=== PATIENT | female | born 1940 | race Caucasian/White ===

== ENCOUNTER 2017-07-31 14:32 | Outpatient (CLI) | payer MEDICARE, BC ==
--- NOTE | 2017-07-31 15:13 | ULT ---
VENOUS DOPPLER ULTRASOUND OF THE LEF TLOWER EXTREMITY: HISTORY: Left leg edema and pain. TECHNIQUE: Adams scale ultrasound with color flow and spectral Doppler imaging of the deep venous system of the l eft lower extremity was performed. FINDINGS: There is good flow, compression, and augmentation noted in the left common femoral, femoral, deep fem oral, popliteal, posterior tibial, and greater saphenous veins. IMPRESSION: No evidence of deep vein thrombosis in the left lower extremity. POS: [facility]
== END 2017-07-31 14:33 | disposition home or self-care (01) ==
LOC: RAD 14:32
PROVIDERS: ATTEND Student in an Organized Health Care Education/Training Program
DX: R22.42 Localized swelling, mass and lump, left lower limb (principal); Z86.711 Personal history of pulmonary embolism

== ENCOUNTER 2017-08-09 19:53 | Emergency (ER) | payer MEDICARE, BC ==
--- NOTE | 2017-08-09 22:35 | ULT ---
ULTRASOUND WITH DOPPLER DUPLEX VENOUS LEFT LOWER EXTREMITY CPT: 56059 ICD-10-PCS: [id number] HISTORY: Pain, edema, erythema. TECHNIQUE: Color flow Doppler, spectral waveform analysis of pulsed Doppler, and dueñsa-scale imaging with megan rodo and augmentation, were used to evaluate the left common femoral, femoral, popliteal, posterior t ibial, and superficial femoral, veins; and the proximal portions of the profunda femoral and greater saphenous, veins. FINDINGS: Appropriate compressibility and flow within the deep venous system of the left lower extremity. Soft tissue edema is present. IMPRESSION: No evidence of DVT, left lower extremity. POS: [facility]
== END 2017-08-09 22:19 | disposition home or self-care (01) ==
LOC: ERS 19:53
DX: L03.116 Cellulitis of left lower limb (principal); E78.5 Hyperlipidemia, unspecified; I10 Essential (primary) hypertension; Z85.3 Personal history of malignant neoplasm of breast; Z79.82 Long term (current) use of aspirin; Z79.899 Other long term (current) drug therapy

== ENCOUNTER 2017-10-30 10:05 | Outpatient (CLI) | payer MEDICARE, BC | END 2017-10-30 10:06 | disposition home or self-care (01) | LOC: BICMAMMO 10:05 | PROVIDERS: ATTEND Student in an Organized Health Care Education/Training Program | DX: Z12.31 Encounter for screening mammogram for malignant neoplasm of breast (principal); Z13.820 Encounter for screening for osteoporosis; M85.89 Other specified disorders of bone density and structure, multiple sites; Z85.3 Personal history of malignant neoplasm of breast | CPT/HCPCS: 77063; 77067; 77080 ==

== ENCOUNTER 2018-05-13 08:34 | Emergency (ER) | payer MEDICARE, BC ==
[2018-05-13 09:17] LABS: Bilirubin Negative (Negative); Blood, Urine Moderate (Negative); Clarity CLOUDY (Clear); Glucose, Urine (Dipstick) Negative (Negative); Leukocyte Large (Negative); Nitrite Positive (Negative); Protein, Urine (Dipstick) Trace mg/dL (Neg-Trace); Specific Gravity, Urine 1.011 (1.002-1.036); Urobilinogen 0.2 mg/dL (0.2-1.0); pH, Urine 7.5 (5.0-9.0)
[2018-05-13 09:19] LABS: Bacteria/HPF 1+ HPF (None Seen); Hyaline Casts/LPF 7-10 HYALINE CAST LPF (0-3 Hyaline); Pathc Cast-AUWi Flag 2.32 (0-2.49); Squamous Epithelial 0-3 HPF (0-3)
[2018-05-13 09:34] LABS: Crystals/HPF 1+ CA OXALATE HPF (Negative)
[2018-05-13 09:56] LABS: #Lymphocytes 1.7 thou/uL (1.20-3.40); #Monocytes 0.6 thou/uL (0.11-0.59); %Basophils 0.2 % (0.0-1.0); %Eosinophils 0.5 % (0.0-10.0); %Lymphocytes 17.7 % (21.0-51.0); %Monocytes 6.3 % (0.0-10.0); %Neutrophils 75.3 % (42.0-75.0); Hemoglobin 14.5 g/dL (12.0-16.0); Mean Corpuscular HGB CONC 31.5 g/dL (32.0-36.0); Mean Corpuscular Hemoglobin 29.7 pg (27.0-31.0); Mean Corpuscular Volume 94.3 fL (78.0-98.0); Mean Platelet Volume 7.9 fL (7.4-10.4); Platelet Count 187 thou/uL (130-400); RBC Distribution Width 13.3 % (11.5-14.5); Red Blood Cell (RBC) Count 4.88 mill/uL (4.20-5.40); White Blood Cell (WBC) Count 9.3 thou/uL (4.8-10.8)
--- NOTE | 2018-05-13 10:07 | CT ---
CT OF THE BRAIN WITHOUT CONTRAST: Date: 05/13/18 INDICATION: History of fall and head injury. COMPARISON: None. FINDINGS: There is moderate chronic small vessel which matter ischemic change and mild generalized cerebral and cerebellar atrophy. No acute infarct, hemorrhage, or hydrocephalus is present. There is mild mucosal thickening of the ethmoid air cells. Skull is intact. IMPRESSION: No acute intracranial abnormality. Chronic findings as above. POS: [facility]
--- NOTE | 2018-05-13 10:12 | RAD ---
2 VIEWS RIGHT HIP: Date: 05/13/18 COMPARISON: None. HISTORY: Right hip pain after fall last night around dinner time. FINDINGS: Two views of the right hip show no evidence of acute fracture or dislocation. No degenerative changes are seen. No soft tissue swelling is present. IMPRESSION: Unremarkable exam. POS: [facility]
[2018-05-13 10:14] LABS: ALT (SGPT) 11 U/L (8-55); AST (SGOT) 16 U/L (5-34); Alkaline Phosphatase 99 U/L (40-150); Anion Gap 11 mmol/L (10-20); BUN (Urea Nitrogen) 12 mg/dL (9.8-20.1); Bilirubin, Total 0.4 mg/dL (0.2-1.2); CK (CPK) 169 U/L (29-168); Calc. Creatinine Clearance 0 mL/min (70-130); Calcium 10.6 mg/dL (7.8-10.44); Carbon Dioxide 29 mmol/L (23-31); Chloride 104 mmol/L (98-107); Estimated GFR-MDRD 71; Globulin 3.5 g/dL (2.4-3.5); Glucose 115 mg/dL (83-110); Lipase 9 U/L (8-78); Potassium 3.3 mmol/L (3.5-5.1); Protein, Total 7.5 g/dL (6.0-8.3); Sodium 141 mmol/L (136-145)
--- NOTE | 2018-05-13 10:25 | CT ---
CT THORACIC SPINE WITHOUT CONTRAST: Date: 05/13/18 COMPARISON: None. HISTORY: Back pain and right hip pain after falling last night. TECHNIQUE: Multiple contiguous axial images were obtained in a CT of the thoracic spine without contrast. Sagitt al and coronal reformats were performed. FINDINGS: The vertebral bodies demonstrate normal height and alignment without acute fracture or subluxation. T he intervertebral discs are narrowed and small osteophytes are seen throughout the thoracic spine. No bony narrowing of the neural foramina or central canal is seen in the thoracic spine. There is a hypodensity in the right lobe of the liver which likely represents a cyst. The other visua lized prevertebral and paraspinal soft tissues are unremarkable. IMPRESSION: Degenerative changes of the thoracic spine without acute osseous abnormality. POS: [facility]
--- NOTE | 2018-05-13 10:34 | CT ---
CT OF THE LUMBAR SPINE WITHOUT CONTRAST: Date: 05/13/18 HISTORY: Back pain and right hip pain after fall last night. TECHNIQUE: Multiple contiguous axial images were obtained in a CT of the lumbar spine without contrast. Sagittal and coronal reformats were performed. FINDINGS: The vertebral bodies demonstrate normal height and alignment without acute fracture or subluxation. T he intervertebral discs are narrowed and moderate osteophytes are seen throughout the lumbar spine. V acuum phenomenon is seen at multiple levels. No bony narrowing of the central canal is seen. There is mild bilateral bony narrowing of the neural foramina from L2-3 through L5-S1. There are nonobstructing large calcifications in both kidneys. Atherosclerotic calcifications are see n in the aorta. Scattered diverticula are seen in the colon. The other prevertebral and paraspinal so ft tissues are unremarkable. IMPRESSION: 1. Degenerative changes of the lumbar spine without acute osseous abnormality. 2. Bilateral nonobstructing kidney stones. POS: [facility]
--- NOTE | 2018-05-13 10:44 | CT ---
CT CERVICAL SPINE WITHOUT CONTRAST: Date: 05/13/18 INDICATION: History of fall with neck pain. COMPARISON: None. FINDINGS: No acute fracture or subluxation is evident. There is diffuse osteopenia. There is multilevel spondyl osis of the cervical spine. There is straightening of the normal cervical lordosis, which may be rela juvenal to positioning. Prevertebral soft tissues are normal appearing. Lung apices are clear. The cranio cervical junction appears within normal limits. IMPRESSION: No acute osseous abnormality. Multilevel spondylosis. POS: [facility]
== END 2018-05-13 10:46 | disposition home or self-care (01) ==
LOC: ERS 08:34
DX: S70.01XA Contusion of right hip, initial encounter (principal); N39.0 Urinary tract infection, site not specified; I10 Essential (primary) hypertension; E78.5 Hyperlipidemia, unspecified; Z79.899 Other long term (current) drug therapy; Z79.82 Long term (current) use of aspirin; W06.XXXA Fall from bed, initial encounter
CPT/HCPCS: 36415; 70450; 72125; 72128; 72131; 80053; 81003; 81015; 82550; 83605; 83690; 84484; 85025; 87077; 87086; 87186; 93005

== ENCOUNTER 2019-01-06 14:04 | Emergency (ER) | payer MEDICARE, BC ==
--- NOTE | 2019-01-06 15:42 | RAD ---
AP PELVIS: Date: 01/06/19 HISTORY: Fall, pelvic pain, low back pain. FINDINGS/IMPRESSION: No definite fracture or dislocation is identified. POS: [facility]
--- NOTE | 2019-01-06 15:45 | RAD ---
Exam: Lumbar spine 2 views HISTORY: Patient fell while trying to get into the elevator. Right lower back pain. Comparison none FINDINGS: 5 lumbar type vertebra. Dextroscoliosis of the lumbar spine, apex at the L3 level. Lumbar spine verte bral body height is maintained. No fracture. Moderate to severe degenerative change at L1-L2 and L2-L3. Severe degenerative disc disease at L3-L4 with vacuum disc phenomenon and endplate sclerosis. Spondylolisthesis: L4 upon L5: 3.6 mm of anterolisthesis L5 upon S1: 4.4 mm of anterolisthesis. Hypertrophy changes of the posterior elements at L4-L5 and L5-S1 Atherosclerosis of the aorta IMPRESSION: 1. No fracture. 2. Degenerative changes of the lumbar spine as above. 3. Dextroscoliosis.
== END 2019-01-06 16:23 | disposition home or self-care (01) ==
LOC: ERS 14:04
DX: M54.5 Low back pain (principal); I10 Essential (primary) hypertension; E78.5 Hyperlipidemia, unspecified; Z85.3 Personal history of malignant neoplasm of breast; Z79.899 Other long term (current) drug therapy; Z79.82 Long term (current) use of aspirin; W18.30XA Fall on same level, unspecified, initial encounter
CPT/HCPCS: 72100; 72170

== ENCOUNTER 2019-02-15 18:15 | Inpatient (IN) | payer MEDICARE, BC ==
[2019-02-15 19:44] LABS: #Eosinphils 0.2 thou/uL (0.0-0.7); #Lymphocytes 2.4 thou/uL (1.20-3.40); #Monocytes 0.9 thou/uL (0.11-0.59); #Neutrophils 5.2 thou/uL (1.40-6.50); %Basophils 0.5 % (0.0-1.0); %Eosinophils 1.7 % (0.0-10.0); %Lymphocytes 27.8 % (21.0-51.0); %Monocytes 10.4 % (0.0-10.0); %Neutrophils 59.6 % (42.0-75.0); Mean Corpuscular HGB CONC 32.3 g/dL (32.0-36.0); Mean Corpuscular Hemoglobin 29.9 pg (27.0-31.0); Mean Corpuscular Volume 92.6 fL (78.0-98.0); Mean Platelet Volume 7.9 fL (7.4-10.4); Platelet Count 175 thou/uL (130-400); RBC Distribution Width 13.3 % (11.5-14.5); Red Blood Cell (RBC) Count 4.69 mill/uL (4.20-5.40); White Blood Cell (WBC) Count 8.7 thou/uL (4.8-10.8)
[2019-02-15 20:05] LABS: ALT (SGPT) 10 U/L (8-55); AST (SGOT) 17 U/L (5-34); Albumin 3.7 g/dL (3.4-4.8); Alkaline Phosphatase 100 U/L (40-110); Anion Gap 11 mmol/L (10-20); BUN (Urea Nitrogen) 14 mg/dL (9.8-20.1); Bilirubin, Total 0.4 mg/dL (0.2-1.2); Calc. Creatinine Clearance 0 mL/min (70-130); Calcium 10.1 mg/dL (7.8-10.44); Carbon Dioxide 28 mmol/L (23-31); Chloride 105 mmol/L (98-107); Estimated GFR-MDRD 72; Globulin 3.6 g/dL (2.4-3.5); Glucose 93 mg/dL (83-110); Protein, Total 7.3 g/dL (6.0-8.3); Sodium 140 mmol/L (136-145)
[2019-02-15] MEDS ORDERED: Fentanyl 100 MCG/2 ML VIAL ONE (20:08)
[2019-02-15] MEDS ORDERED: Furosemide 40 MG/4 ML VIAL ONE (20:09)
[2019-02-15] MEDS ORDERED: Clindamycin/D5W 900 mg/50 ml Premix Bag ONE (20:09)
[2019-02-15] MEDS ORDERED: Nitroglycerin 2% Ointment 1 INCH/1 GM Packet ONE ×2 (20:09→22:59)
[2019-02-15 20:10] LABS: Bacteria/HPF 2+ HPF (None Seen); Bilirubin Negative (Negative); Blood, Urine Trace (Negative); Clarity Turbid (Clear); Glucose, Urine (Dipstick) Normal (Negative); Leukocyte 500 Leu/uL (Negative); Nitrite 1+ (Negative); Protein, Urine (Dipstick) 20 mg/dL (Neg-Trace); Urobilinogen Normal mg/dL (Less than 2); WBC/HPF Greater than 50 HPF (0-3)
--- NOTE | 2019-02-15 22:34 | PDOC.FPRHP ---
- History of Present Illness Chief Complaint: chills History of Present Illness: Patient is a 78F with PMHx of HLD, HTN, hypothyroidism, breast cancer treated with chemo and radiation, and chronic venous insufficiency and venous stasis that presents with warmth of her legs. Patient was recently seen at [facility] for worsening weeping of her BLE due to her chronic venous insufficiency. Her legs were not warm to touch at that time, and the patient had not been febrile. She was recommended to see wound care, and has an appointment with them on thursday. She as also recommended to see the [facility] [place], as this appears to be a chronic problem. Patient' s daughter reports that patient has not been active, has not been wearing her compression stockings, and has not been elevating her legs. She reports that her legs began to feel warm today and she was brought in by her daughter. ED Course: lasix, started on clindamycin, vancomycin - Allergies/Adverse Reactions Allergies Allergy/AdvReac Type Severity Reaction Status Date / Time ciprofloxacin Allergy Unknown Verified 02/01/16 22:58 morphine Allergy Unknown Verified 02/01/16 22:58 sulfamethoxazole Allergy Unknown Verified 02/01/16 22:58 [From Septra] trimethoprim [From Septra] Allergy Unknown Verified 02/01/16 22:58 bacitracin Allergy Verified 02/16/19 00:00 cephalexin [From Keflex] Allergy Hives Verified 02/01/16 22:58 doxycycline Allergy Hives Verified 02/01/16 22:58 erythromycin base Allergy Nausea Verified 02/01/16 22:58 fluticasone Allergy sores on Verified 02/01/16 22:58 [From Advair Diskus] tongue hydromorphone [From Dilaudid] Allergy swelling Verified 02/01/16 22:58 meperidine [From Demerol] Allergy Nausea Verified 02/01/16 22:58 omeprazole [From Prilosec] Allergy joints Verified 02/01/16 22:58 swelling Penicillins Allergy Nausea Verified 02/01/16 22:58 salmeterol Allergy sores on Verified 02/01/16 22:58 [From Advair Diskus] tongue strawberry Allergy Verified 02/16/19 15:57 - Home Medications Medication Instructions Recorded Confirmed Type Aspirin [Ecotrin Regular Strength] 81 mg PO DAILY 03/16/14 02/16/19 History Furosemide [Lasix] 20 mg PO DAILY 03/16/14 02/16/19 History Isosorbide Mononitrate [Isosorbide 30 mg PO BID 03/16/14 02/16/19 History Mononitrate ER] Levothyroxine Sodium 50 mcg PO AC 03/16/14 02/16/19 History Metoprolol Tartrate [Lopressor] 25 mg PO BID 03/16/14 02/16/19 History Montelukast Sodium 10 mg PO HS 03/16/14 02/16/19 History Pravastatin Sodium 80 mg PO HS 03/16/14 02/16/19 History Cranberry Conc/Ascorbic Acid 2 cap PO DAILY 02/16/19 02/16/19 History [Cranberry Concentrate Softgel] Potassium Chloride [Klor-Con] 20 meq PO DAILY 02/16/19 02/16/19 History - History PMHx:HLD, HTN, hypothyroidism, breast cancer treated with chemo and radiation, and chronic venous insufficiency and venous stasis PSHx: knee replacement, hysterectomy FHx: non-contributory Social: negative for smoking/drinking/drug use - Review of Systems General: reports: fever/chills (chills, no fever). denies: weight/appetite/ sleep changes Eyes: denies: eye pain, vision changes ENT: denies: nasal congestion, rhinorrhea Respiratory: denies: cough, shortness of breath Cardiovascular: reports: edema (BLE edema). denies: chest pain, palpitation Gastrointestinal: denies: vomiting, diarrhea Genitourinary: reports: incontinence. denies: discharge Skin: reports: lesions (some small lesions left lower extremity), itching (left lower extremity). denies: jaundice Musculoskeletal: reports: tenderness (BLE), swelling (BLE) Neurological: denies: numbness, seizure Psychological: denies: anxiety, depression - Vital signs BP: [119/66] HR: [78] RR: [18] Tmax: [97.5] Pox: [97]% on [RA] Wt: [83.46kg] - Physical Exam Constitutional: NAD, well developed HEENT: grossly normal hearing, MMM Neck: supple, FROM Chest: no-tender to palpation, no lesions Heart: RRR, normal S1/S2 Lungs: CTAB, no respiratory distress Abdomen: soft, non-tender Musculoskeletal: normal structure, normal tone, other (BLE 2+ pitting edema) Neurological: no focal deficit, normal sensation Skin: good turgor, other (small excorations LLE; erythematous rash BLE up to mid -calf) Heme/Lymphatic: no unusual bruising or bleeding, no purpura Psychiatric: normal mood and affect, other (some memory loss) FMR H&P: Results - Labs Result Diagrams: 02/16/19 07:16 02/16/19 07:15 Lab results: WBC 8.7 thou/uL (4.8-10.8) 02/15/19 19:32 Hgb 14.0 g/dL (12.0-16.0) 02/15/19 19:32 Hct 43.4 % (36.0-47.0) 02/15/19 19:32 MCV 92.6 fL (78.0-98.0) 02/15/19 19:32 Plt Count 175 thou/uL (130-400) 02/15/19 19:32 Neutrophils % 59.6 % (42.0-75.0) 02/15/19 19:32 Sodium 140 mmol/L (136-145) 02/15/19 19:32 Potassium 4.0 mmol/L (3.5-5.1) 02/15/19 19:32 Chloride 105 mmol/L (98-107) 02/15/19 19:32 Carbon Dioxide 28 mmol/L (23-31) 02/15/19 19:32 BUN 14 mg/dL (9.8-20.1) 02/15/19 19:32 Creatinine 0.78 mg/dL (0.6-1.1) 02/15/19 19:32 Glucose 93 mg/dL (83-110) 02/15/19 19:32 Lactic Acid 0.8 mmol/L (0.5-2.2) 02/15/19 20:09 Calcium 10.1 mg/dL (7.8-10.44) 02/15/19 19:32 Total Bilirubin 0.4 mg/dL (0.2-1.2) 02/15/19 19:32 AST 17 U/L (5-34) 02/15/19 19:32 ALT 10 U/L (8-55) 02/15/19 19:32 Alkaline Phosphatase 100 U/L (40-110) 02/15/19 19:32 Serum Total Protein 7.3 g/dL (6.0-8.3) 02/15/19 19:32 Albumin 3.7 g/dL (3.4-4.8) 02/15/19 19:32 Urine Ketones Negative mg/dL (Negative) 02/15/19 19:30 Urine Blood Trace (Negative) A 02/15/19 19:30 Urine Nitrite 1+ (Negative) A 02/15/19 19:30 Ur Leukocyte Esterase 500 Jean-Pierre/uL (Negative) A 02/15/19 19:30 Urine RBC 4-6 HPF (0-3) A 02/15/19 19:30 Urine WBC Greater than 50 HPF (0-3) A 02/15/19 19:30 Ur Squamous Epith Cells 4-6 HPF (0-3) A 02/15/19 19:30 Urine Bacteria 2+ HPF (None Seen) A 02/15/19 19:30 - Radiology Interpretation Other Status: report reviewed by me (venogram BLE: no DVT on Right, no DVT up to distal femoral veins on left) FMR H&P: A/P - Problem List (1) Cellulitis Current Visit: Yes Status: Acute Code(s): L03.90 - CELLULITIS, UNSPECIFIED (2) Venous insufficiency Current Visit: Yes Status: Chronic Code(s): I87.2 - VENOUS INSUFFICIENCY ( CHRONIC) (PERIPHERAL) (3) Stasis dermatitis of both legs Current Visit: Yes Status: Chronic Code(s): I87.2 - VENOUS INSUFFICIENCY ( CHRONIC) (PERIPHERAL) (4) Urinary tract infection Current Visit: No Status: Acute (5) Hypertension Current Visit: No Status: Chronic Code(s): I10 - ESSENTIAL (PRIMARY) HYPERTENSION (6) Hypothyroidism Current Visit: No Status: Chronic Code(s): E03.9 - HYPOTHYROIDISM, UNSPECIFIED (7) Asthma Current Visit: Yes Status: Chronic Code(s): J45.909 - UNSPECIFIED ASTHMA, UNCOMPLICATED - Plan Patient is a 78F with chronic venous insufficiency stasis dermatitis admitted for BLE cellulitis #BLE cellulitis -hx of chronic venous insufficiency stasis dermatitis -BLE not warm on exam in clinic 02/14, warm to touch and much more erythematous on exam in ED -started on clindamycin and vancomycin in ED, continue -WBC wnl, continue to monitor -patient afebrile at this time -blood cultures pending -wound care consulted, appreciate recommendations -continue home Lasix -low salt diet -PT/OT #UTI -on vancomycin and clindamycin for BLE cellulitis -urine culture pending, will follow and alter abx if possible #BLE chronic venous insufficiency stasis dermatitis -wound care consulted, appreciate recommendations -patient to f/u with wound care and [facility] [place] outpatient #HTN -continue home meds #Hypothyroidism -continue home meds #Asthma -continue home meds DVT ppx: lovenox Dispo: inpatient for IV abx for BLE cellulitis; wound care consult Code: DNR FMR H&P: Upper Level - Pertinent history 78 yo female presents with her daughter for evaluation of worsening redness, warmth, and itchiness of her lower legs. She was seen by PCP yesterday and over last day it has significantly worsened. Please see culinary intern note above for further information. - Plan Date/Time: 02/15/19 [id number] I, Benoit Mejia MD, have evaluated this patient and agree with findings/ plan as outlined by culinary intern resident. Pertinent changes/additions are listed here. 1. Bilateral LE cellulitis - Empiric antibiotics started - Wound care consulted - Blood cultures pending - Consider imaging if symptoms worsen or persist 2. Urinalysis positive - Sent for urine culture - History of ESBL - Likely covered by antibiotics for cellulitis All other chronic conditions reviewed and medications will be started as appropriate. PCP: RON Hobson CODE STATUS: DNAR Disposition: Stable, will admit to medical floor for further evaluation and treatment. Addendum - Attending - Attending Attestation Date/Time: 02/17/19 [id number] I personally evaluated the patient and discussed the management with Dr. Hobson on 02/15/2019 I agree with the History, Examination, Assessment and Plan documented above with any addition or exceptions noted below - 78F with PMHx of HLD, HTN, hypothyroidism, breast cancer treated with chemo and radiation, and chronic venous insufficiency and venous stasis that presents with warmth of her legs. Patient was recently seen at [facility] for worsening weeping of her BLE due to her chronic venous insufficiency. Her legs were not warm to touch at that time, and the patient had not been febrile. Today redness and worsened and were more pruritic. PMH/PSH/Meds/SH reviewed and agree with resident's documentation. Afebrile VSS. Exam repeated by me and agree with resident's findings. A/P: 1) B/ L lower ext cellulitis with chronic venous stasis - Admit to medical and continue IV abx. Wound care consult 2) UTI- urine culture pending. 3) HTN- continue home meds
[2019-02-15] MEDS ORDERED: diphenhydrAMINE 25 MG CAP PO PRN (23:44)
[2019-02-16 00:03] VITALS: BMI 35.9
[2019-02-16] MEDS ORDERED: Ibuprofen 600 MG TAB PO PRN (01:49)
[2019-02-16] MEDS ORDERED: Hydrocortisone 1% Cream 1.5 GM Packet TOP PRN (01:49)
[2019-02-16] MEDS ORDERED: Clindamycin/D5W 300 MG in Premix Bag 1 BAG IVPB SCH (06:00)
[2019-02-16] MEDS ORDERED: Vancomycin HCl 1 GM in Premix Bag 1 BAG IVPB SCH (09:00)
--- NOTE | 2019-02-16 11:39 | ULT ---
PRELIMINARY REPORT/[facility]/EMERGENCY AFTER HOURS PROCEDURE EXAM: US Duplex bilateral Lower Extremity Veins. CLINICAL HISTORY: BLE pain/edema, redness of BLE, pain worse in LLE TECHNIQUE: Real-time ultrasound scan of the veins of the bilateral lower extremity with color Doppler flow, spec tral waveform analysis and compression. COMPARISON: None provided. FINDINGS: DEEP VEINS: On the right side: The common femoral, femoral, and popliteal veins are echolucent and compressible. These vessels demonstrate respiratory variation and augmentation. There is normal color Doppler flow throughout. The visualized calf veins are also patent. On the left side: The common femoral, proximal, mid and distal superficial femoral veins are echoluce nt and compressible. These vessels demonstrate respiratory variation and augmentation. There is normal color Doppler flow throughout. The popliteal and infrapopliteal veins were not imaged as the patient refused to complete the study. SUPERFICIAL VEINS: The visualized greater saphenous vein is patent. SOFT TISSUES: No popliteal fossa cyst or other abnormalities. IMPRESSION: No evidence for DVT in the right lower extremity. No evidence for DVT in the left lower extremity fr om the common femoral to the distal femoral veins. The patient refused to complete the study ELECTRONICALLY SIGNED BY: Aaron Elizabeth MD Feb 16, 2019 2:00:48 AM PULP [employer]ER This report is intended for review by the ordering physician only, in accordance of law. If you recei ve this report in error, please call [facility] at [phone]. FINAL REPORT: I agree with the preliminary report provided. The visualized deep venous structures of the lower extr emities bilaterally reveal no evidence of DVT. The patient declined a full examination of the left lower extremity. The left lower extremity was evaluated to the distal left femoral veins. Transcribed Date/Time: 02/16/2019 2:14 PM
[2019-02-16 12:52] LABS: #Eosinphils 0.1 thou/uL (0.0-0.7); #Lymphocytes 1.8 thou/uL (1.20-3.40); #Monocytes 0.9 thou/uL (0.11-0.59); #Neutrophils 5.2 thou/uL (1.40-6.50); %Basophils 0.2 % (0.0-1.0); %Eosinophils 1.1 % (0.0-10.0); %Lymphocytes 22.5 % (21.0-51.0); %Monocytes 11.6 % (0.0-10.0); %Neutrophils 64.7 % (42.0-75.0); Hemoglobin 13.1 g/dL (12.0-16.0); Mean Corpuscular Volume 93.5 fL (78.0-98.0); Mean Platelet Volume 8.9 fL (7.4-10.4); Platelet Count 164 thou/uL (130-400); RBC Distribution Width 13.3 % (11.5-14.5); Red Blood Cell (RBC) Count 4.51 mill/uL (4.20-5.40)
[2019-02-16] MEDS: Enoxaparin Sodium 30 MG/0.3 ML SYRINGE SC SCH (13:30)
[2019-02-16] MEDS: Clindamycin/D5W 600 MG in Premix Bag 1 BAG IVPB SCH ×4 (14:06→23:00)
[2019-02-16 17:01] LABS: Anion Gap 13 mmol/L (10-20); BUN (Urea Nitrogen) 11 mg/dL (9.8-20.1); Calc. Creatinine Clearance 91 mL/min (70-130); Calcium 9.3 mg/dL (7.8-10.44); Carbon Dioxide 24 mmol/L (23-31); Chloride 106 mmol/L (98-107); Estimated GFR-MDRD 84; Glucose 107 mg/dL (83-110); Potassium 3.6 mmol/L (3.5-5.1); Sodium 139 mmol/L (136-145)
[2019-02-16] MEDS ORDERED: Vancomycin HCl 1.25 GM in Sodium Chloride 0.9% 250 ML 250 ML IVPB SCH (21:00)
[2019-02-16] MEDS: Acetaminophen 325 MG TAB PO PRN (22:10)
[2019-02-17] MEDS: Clindamycin/D5W 600 MG in Premix Bag 1 BAG IVPB SCH ×2 (03:19→09:29)
[2019-02-17 06:21] LABS: #Basophils 0.1 thou/uL (0.0-0.2); #Eosinphils 0.1 thou/uL (0.0-0.7); #Lymphocytes 1.9 thou/uL (1.20-3.40); #Monocytes 0.8 thou/uL (0.11-0.59); #Neutrophils 3.6 thou/uL (1.40-6.50); %Basophils 0.9 % (0.0-1.0); %Eosinophils 2.3 % (0.0-10.0); %Lymphocytes 29.6 % (21.0-51.0); %Monocytes 12.2 % (0.0-10.0); Mean Corpuscular HGB CONC 30.9 g/dL (32.0-36.0); Mean Corpuscular Hemoglobin 29.3 pg (27.0-31.0); Mean Corpuscular Volume 94.8 fL (78.0-98.0); Mean Platelet Volume 7.9 fL (7.4-10.4); Platelet Count 153 thou/uL (130-400); RBC Distribution Width 13.4 % (11.5-14.5); Red Blood Cell (RBC) Count 4.79 mill/uL (4.20-5.40); White Blood Cell (WBC) Count 6.5 thou/uL (4.8-10.8)
--- NOTE | 2019-02-17 06:40 | PDOC.FM ---
- Subjective Subjective: NAEO. No concerns per nursing. Patient resting comfortably in bed. States the pain in her LLE is no longer there. States she was able to work with PT yesterday and she would like to continue this. She believes she is ready to go home. Patient has no other complaints or concerns. - Objective MAR Reviewed: Yes Vital Signs & Weight: Vital Signs (12 hours) Temp Pulse Resp BP Pulse Ox 02/17/19 04:00 98.4 F 91 18 123/70 91 L 02/17/19 00:00 99 F 88 18 143/78 H 92 L 02/16/19 20:00 98.3 F 91 16 121/76 95 Weight Admit Weight 83.461 kg Weight 83.461 kg I&O: 02/15/19 02/16/19 02/17/19 06:59 06:59 06:59 Intake Total 580 Balance 580 Result Diagrams: 02/17/19 05:58 02/16/19 07:15 Phys Exam - Physical Examination Constitutional: NAD HEENT: PERRLA, moist MMs, sclera anicteric Neck: supple, full ROM Respiratory: no wheezing, no rales, no rhonchi, clear to auscultation bilateral Cardiovascular: RRR, no significant murmur, no rub Gastrointestinal: soft, non-tender, no distention, positive bowel sounds trace edema in b/l feet; discoloration of bl LE, no draining of wound sites gauze wrapping over LLE Neurological: non-focal, moves all 4 limbs Psychiatric: normal affect, A&O x 3 Deviation from normal: Patient does get fixed and has tangential thinking Skin: normal turgor, cap refill <2 seconds Deviation from normal: erythema on b/l LE - c/w venous stasis; no drainge from site Dx/Plan (1) Cellulitis Code(s): L03.90 - CELLULITIS, UNSPECIFIED Status: Acute (2) Stasis dermatitis of both legs Code(s): I87.2 - VENOUS INSUFFICIENCY (CHRONIC) (PERIPHERAL) Status: Chronic (3) Venous insufficiency Code(s): I87.2 - VENOUS INSUFFICIENCY (CHRONIC) (PERIPHERAL) Status: Chronic (4) Urinary tract infection Status: Acute (5) Anxiety and depression Status: Chronic (6) Hypertension Code(s): I10 - ESSENTIAL (PRIMARY) HYPERTENSION Status: Chronic (7) Hypothyroidism Code(s): E03.9 - HYPOTHYROIDISM, UNSPECIFIED Status: Chronic - Plan Plan: Patient is a 78F with chronic venous insufficiency stasis dermatitis admitted for BLE cellulitis #BLE cellulitis Hx of chronic venous insufficiency stasis dermatitis. BLE not warm on exam in clinic 02/14, warm to touch and much more erythematous on exam in ED. Afebrile and WBC normal. Venogram neg for DVT- patient did refuse full exam of LLE due to pain. - Started on clindamycin and vancomycin in ED, continue. Can consider de- escalating abx th to oral today. - Bcx / coag neg Staph, likely contaminant. - Wound care consulted, appreciate recommendations - Continue home Lasix - PT/OT #UTI On vancomycin and clindamycin for BLE cellulitis. - Urine culture pending, will follow and alter abx if necessary. #BLE chronic venous insufficiency stasis dermatitis - Wound care consulted, appreciate recommendations - Patient to f/u with wound care and [facility] outpatient - Zheng sauceda #HTN - continue home meds #Hypothyroidism - continue home meds #Asthma - continue home meds #Dementia - Discussed with daughter. She states her mother has been very disoriented and requires constant redirecting. Memory has declined significantly in the last month. Per daughter, declined from her baseline currently. Lives at independently living and has someone bring her meds and helps her shower. Has difficulty getting into her bed. - CM consulted for guidance on assisted living vs NH. DVT ppx: lovenox Code: DNR Dispo: likely dc today or tomorrow. Case discussed with Dr. Hastings. Addendum - Attending - Attending Attestation Date/Time: 02/17/19 [id number] I personally evaluated the patient and discussed the management with Dr. Ruvalcaba I agree with the History, Examination, Assessment and Plan documented above with any addition or exceptions noted below. Discussed with family and will de-escalate anti-biotic to po RX several allergies listed no evidence history of and significant reaction requiring emergency care or sytemic reaction will cautiously administer po po keflex as agent of choice to cover UTI and cellulitis. History given that patient has recently received cephalosporin without adverse effect. Family awre of our concern and reasoning to de-escalate her IV antibiotic to po rx.
[2019-02-17] MEDS: Enoxaparin Sodium 30 MG/0.3 ML SYRINGE SC SCH (09:29)
[2019-02-17] MEDS ORDERED: diphenhydrAMINE 50 MG CAP PO PRN (11:43)
[2019-02-17] MEDS ORDERED: EPINEPHrine 1 mg/ml MDV (1ml Charge) IM PRN (11:43)
[2019-02-17] MEDS ORDERED: diphenhydrAMINE 50 MG/ML VIAL IVP PRN (11:43)
[2019-02-17] MEDS ORDERED: Cephalexin 250 MG CAP PO SCH (11:45)
[2019-02-17] MEDS ORDERED: EPINEPHrine 1 MG/ML AMP IM PRN (12:14)
[2019-02-17] MEDS ORDERED: Cephalexin 250 MG/5 ML Oral Suspension PO SCH (12:15)
[2019-02-17] MEDS: Cephalexin 250 MG CAP PO SCH (20:03)
[2019-02-18] MEDS: Acetaminophen 325 MG TAB PO PRN (05:00)
--- NOTE | 2019-02-18 06:46 | PDOC.FM ---
- Subjective Subjective: NAEO. Patient resting in bed. Patient's daughter at the bedside who states that the patient's legs do look a lot better. She is concerned about the patient's memory. States that she has had a rapid decline in her memory over the last month and even 2 weeks. The patient states that she is doing well. She had just woken up. States the pain in the LLE is much improved. She has been tolerating her diet well. She denies any reaction to the medication from yesterday. - Objective MAR Reviewed: Yes Vital Signs & Weight: Vital Signs (12 hours) Temp Pulse Resp BP Pulse Ox 02/17/19 20:00 97.6 F 87 16 137/82 96 Weight Admit Weight 83.461 kg Weight 83.461 kg I&O: 02/16/19 02/17/19 02/18/19 06:59 06:59 06:59 Intake Total 580 590 Balance 580 590 Result Diagrams: 02/17/19 05:58 02/16/19 07:15 Phys Exam - Physical Examination Constitutional: NAD HEENT: PERRLA, moist MMs, sclera anicteric Neck: supple, full ROM Respiratory: no wheezing, no rales, no rhonchi, clear to auscultation bilateral Cardiovascular: RRR, no significant murmur, no rub Gastrointestinal: soft, non-tender, no distention, positive bowel sounds Musculoskeletal: pulses present LLE with gauze wrap in place - dried drainage; RLE mildly erythematous no drainge of RLE Neurological: non-focal, normal sensation, moves all 4 limbs Psychiatric: normal affect, A&O x 3 Skin: normal turgor, cap refill <2 seconds Deviation from normal: discoloration of LE - venous stasis Dx/Plan (1) Cellulitis Code(s): L03.90 - CELLULITIS, UNSPECIFIED Status: Acute (2) Stasis dermatitis of both legs Code(s): I87.2 - VENOUS INSUFFICIENCY (CHRONIC) (PERIPHERAL) Status: Chronic (3) Venous insufficiency Code(s): I87.2 - VENOUS INSUFFICIENCY (CHRONIC) (PERIPHERAL) Status: Chronic (4) Urinary tract infection Status: Acute (5) Anxiety and depression Status: Chronic (6) Hypertension Code(s): I10 - ESSENTIAL (PRIMARY) HYPERTENSION Status: Chronic (7) Hypothyroidism Code(s): E03.9 - HYPOTHYROIDISM, UNSPECIFIED Status: Chronic - Plan Plan: Patient is a 78F with chronic venous insufficiency stasis dermatitis admitted for BLE cellulitis #BLE cellulitis, improved Hx of chronic venous insufficiency stasis dermatitis. BLE not warm on exam in clinic 02/14, warm to touch and much more erythematous on exam in ED. Afebrile and WBC normal. Venogram neg for DVT- patient did refuse full exam of LLE due to pain. - Started on clindamycin and vancomycin in ED - these have been discontinued. Switched to Keflex for abx therapy. Keflex listed as allergy, but per family patient had taken before with no issues. Patient was given a test dose on 02/17 and tolerated it well. She was escalated to full therapy dose with no issues noted. - Bcx / coag neg Staph, likely contaminant. - Wound care consulted, appreciate recommendations - Continue home Lasix - PT/OT - CM consulted for placement/discharge planning. #UTI UA pos for infection. - Urine culture - coag neg staph. On keflex. #BLE chronic venous insufficiency stasis dermatitis - Wound care consulted, appreciate recommendations - Patient to f/u with wound care and [facility] outpatient - [place] hose #HTN - continue home meds #Hypothyroidism - continue home meds #Asthma - continue home meds #Dementia - Discussed with daughter. She states her mother has been very disoriented and requires constant redirecting. Memory has declined significantly in the last month. Per daughter, declined from her baseline currently. Lives at independently living and has someone bring her meds and helps her shower. Has difficulty getting into/out of her bed. - CM consulted placement at SNF DVT ppx: lovenox Code: DNR Dispo: dc pending placement. Case discussed with Dr. Hastings. Addendum - Attending - Attending Attestation Date/Time: 02/19/19 0702 I personally evaluated the patient and discussed the management with Dr. Ruvalcaba I agree with the History, Examination, Assessment and Plan documented above with any addition or exceptions noted below.
[2019-02-18 07:42] VITALS: TEMP 98.1
[2019-02-18] MEDS: Enoxaparin Sodium 30 MG/0.3 ML SYRINGE SC SCH (08:47)
[2019-02-18] MEDS: Cephalexin 250 MG CAP PO SCH (08:47)
[2019-02-18] MEDS ORDERED: Cephalexin 250 MG CAP PO SCH ×3 (09:45→21:00)
[2019-02-18] MEDS ORDERED: Enoxaparin Sodium 30 MG/0.3 ML SYRINGE SC SCH (09:45)
[2019-02-18] MEDS ORDERED: Cephalexin 250 MG/5 ML Oral Suspension PO SCH ×2 (12:00→15:00)
[2019-02-18] MEDS: Levothyroxine Sodium 125 MCG TAB PO SCH ×2 (14:47→17:05)
[2019-02-18 16:39] VITALS: BP 146/68
[2019-02-18] MEDS ORDERED: Montelukast Sodium 10 mg Tablet PO SCH (21:00)
[2019-02-18] MEDS ORDERED: Atorvastatin Calcium 20 MG TAB PO SCH (21:00)
[2019-02-18] MEDS ORDERED: Isosorbide Mononitrate (ER) 30 MG TAB PO SCH (21:00)
[2019-02-19] MEDS ORDERED: Aspirin 81 mg Enteric Coated Tablet PO SCH (09:00)
[2019-02-19] MEDS ORDERED: Enoxaparin Sodium 40 MG/0.4 ML SYRINGE SC SCH (09:00)
[2019-02-19] MEDS ORDERED: Enoxaparin Sodium 30 MG/0.3 ML SYRINGE SC SCH (09:00)
== END 2019-02-18 17:03 | disposition home or self-care (01) | DRG 603 ==
LOC: ERS 18:15 → T4-A 23:20
PROVIDERS: ADMIT Family Medicine; ATTEND Family Medicine
DX: L03.116 Cellulitis of left lower limb (principal); N39.0 Urinary tract infection, site not specified; Z66 Do not resuscitate; L03.115 Cellulitis of right lower limb; C50.912 Malignant neoplasm of unspecified site of left female breast; I10 Essential (primary) hypertension; E78.5 Hyperlipidemia, unspecified; E03.9 Hypothyroidism, unspecified; I83.12 Varicose veins of left lower extremity with inflammation; I83.11 Varicose veins of right lower extremity with inflammation; J45.909 Unspecified asthma, uncomplicated; F03.90 Unspecified dementia, unspecified severity, without behavioral disturbance, psychotic disturbance, mood disturbance, and anxiety; Z88.1 Allergy status to other antibiotic agents; Z88.2 Allergy status to sulfonamides; Z88.5 Allergy status to narcotic agent; Z88.0 Allergy status to penicillin; Z88.8 Allergy status to other drugs, medicaments and biological substances; Z79.82 Long term (current) use of aspirin; Z79.890 Hormone replacement therapy; Z79.899 Other long term (current) drug therapy; Z90.710 Acquired absence of both cervix and uterus
CPT/HCPCS: 36415; 80048; 80053; 81003; 81015; 83605; 84145; 84443; 85025; 87040; 87149; 93970; 96365; 96367; 96375; J1650; J1940; J3010; J3370; J3490; J7050; Q0163

== ENCOUNTER 2019-03-26 09:44 | Emergency (ER) | payer MEDICARE, BC ==
--- NOTE | 2019-03-26 10:22 | RAD ---
XR Hip Rt 2-3 View History: Fall Comparison: Radiograph April 2018 Findings: Large subcortical cysts of the right femoral neck. No acute displaced fracture or malalignm ent. [place]ssicle projects over the right hip joint. Right SI joint is normal. Impression: No acute fracture or malalignment.
--- NOTE | 2019-03-26 10:22 | RAD ---
XR Shoulder Rt 2 View History: Fall Comparison: None. Findings: Comminuted right humeral head/neck fracture with involvement of the lesser and greater tube rosities. Also appears be a possible glenoid fracture. Ribs are intact. Impression: Comminuted humeral head/neck fracture with impaction and angulation and displacement. Als o possible glenoid fracture.
--- NOTE | 2019-03-26 10:31 | RAD ---
Exam: AP pelvis radiograph Comparison 01/06/2019 FINDINGS: Patent and symmetric sacral joints Intact bony pelvis Symmetric and intact obturator rings. Stable mild loss of the left or right hip joint space height. C ontour of both femoral heads are maintained. No fracture. Limited evaluation of both femoral necks due to patient position. If there is pain or point tenderness, additional imaging can be performed. IMPRESSION: No obvious fractures. Additional imaging as clinically warranted.
--- NOTE | 2019-03-26 10:47 | CT ---
Exam: Head CT without contrast HISTORY: Trauma. Fall. Pain. COMPARISON: 05/13/2018 FINDINGS: Hemorrhage: No intraparenchymal hemorrhage or extra-axial hematoma. Brain parenchyma: Cortical dueñas-white matter differentiation is preserved. No mass effect or midline shift. Basilar cisterns are patent.Stable white matter hypodensities due to chronic small vessel ischemic change Ventricular system: Ventricles and sulci are patent and symmetric. Calvarium: Intact. Sinuses and mastoid air cells: Adequate aeration. IMPRESSION: No intracranial posttraumatic sequelae
--- NOTE | 2019-03-26 10:58 | CT ---
Exam: CT cervical spine without contrast HISTORY: Trauma. Pain. COMPARISON: None FINDINGS: No craniocervical dissociation. Appropriate alignment of the lateral masses of C1 and C2. Intact odon toid process Appropriate alignment of the facets. Straightening of normal cervical lordosis may be due to patient position, muscle spasm or cervical co llar. Cervical alignment is similar to the previous examination Soft tissue neck structures: No mass, lymphadenopathy or hematoma. No prevertebral soft tissue swelli ng. Upper mediastinum and lung apices: Unremarkable Central spinal canal: Neural foramina and central spinal canal are patent. Evaluation is limited by carleen camacho. There is stable loss of disc space height, osteophyte formation and spondylolisthesis. Vertebral bodies: Cervical spine vertebral body height is maintained. No fracture. IMPRESSION: 1. No cervical spine fracture. 2. Stable degenerative changes throughout the cervical spine.
[2019-03-26] MEDS ORDERED: HYDROcodone/Acetaminophen 5/325 mg Tablet ONE (11:01)
[2019-03-26] MEDS ORDERED: Ibuprofen 200 MG TAB ONE (11:02)
[2019-03-26] MEDS ORDERED: Morphine 4 MG/ML VIAL ONE (11:15)
== END 2019-03-26 12:27 | disposition short-term general hospital (02) ==
LOC: ERS 09:44
DX: S42.211A Unspecified displaced fracture of surgical neck of right humerus, initial encounter for closed fracture (principal); M25.551 Pain in right hip; E78.5 Hyperlipidemia, unspecified; I10 Essential (primary) hypertension; W01.0XXA Fall on same level from slipping, tripping and stumbling without subsequent striking against object, initial encounter; Y92.000 Kitchen of unspecified non-institutional (private) residence as the place of occurrence of the external cause
CPT/HCPCS: 70450; 72125; 72170; 96374; J2270

== ENCOUNTER 2019-05-12 13:35 | Outpatient (CLI) | payer MEDICARE, BC ==
--- NOTE | 2019-05-17 19:15 | ULT ---
LOWER EXTREMITY ARTERIAL EVALUATION 05/12/19 Examination of the right leg reveals mildly diminished waveforms at the femoral level but nice wavefo amee distally with an ankle-arm index of 1.03. Left lower extremity demonstrates some abnormality in t he waveform at the femoral artery; however, demonstrates nice waveforms in the ankle area. Patient re fused to have a blood pressure cuff put on the left ankle; however, has a normal toe-brachial index o f 0.83. ASSESSMENT: This study is a relatively normal resting study of the lower extremity arterial vessels and would be consistent with mild peripheral arterial disease.
== END 2019-05-12 13:36 | disposition home or self-care (01) ==
LOC: ULT 13:35
PROVIDERS: ATTEND Family Medicine
DX: I73.9 Peripheral vascular disease, unspecified (principal)
CPT/HCPCS: 93922